=== PATIENT | male | born 1945 | race Two or more races ===

== ENCOUNTER 2024-08-31 17:31 | Inpatient (IN) | payer MEDICARE, OTHER ==
[~2024-08-31] VITALS: Ht 177.8 cm; Wt 85.7 kg
[~2024-08-31 17:31] MED LIST: RIVA15TA PO
[2024-08-31 18:54] LABS: BASOPHILS # (AUTO) 0.1 K/uL (0.0-0.2); BASOPHILS % (AUTO) 1.3 % (0.0-2.0); EOSINOPHILS # (AUTO) 0.1 K/uL (0.0-0.7); EOSINOPHILS % (AUTO) 1.9 % (0.0-6.0); HEMATOCRIT 40 % (39-51); HEMOGLOBIN 13.2 g/dL (13.5-17.5); LYMPHOCYTES # (AUTO) 1.1 K/uL (0.8-4.8); LYMPHOCYTES % (AUTO) 16.8 % (20.0-44.0); MEAN CORPUSCULAR HEMOGLOBIN 32 PG (26.0-33.0); MEAN CORPUSCULAR HGB CONC 33 g/dl (31.0-36.0); MEAN CORPUSCULAR VOLUME 96 fL (80-96); MONOCYTES # (AUTO) 0.7 K/uL (0.1-1.30); MONOCYTES % (AUTO) 10.3 % (2.0-12.0); NEUTROPHILS # (AUTO) 4.5 K/uL (1.8-8.9); NEUTROPHILS % (AUTO) 69.7 % (43.0-81.0); PLATELET COUNT (AUTO) 190 K/uL (150-450); RED BLOOD CELL COUNT(AUTO) 4.18 MIL/uL (4.5-6.0); RED CELL DISTRIBUTION WIDTH 16.1 % (11.5-15.0); WHITE BLOOD COUNT (AUTO) 6.4 K/uL (4.3-11.0)
[2024-08-31 18:58] LABS: APPEARANCE,URINE CLEAR (CLEAR); BILIRUBIN,URINE NEGATIVE (NEGATIVE); BLOOD, URINE 2+ Ery/uL (NEGATIVE); COLOR,URINE YELLOW (YELLOW); KETONES,URINE NEGATIVE (NEGATIVE); LEUKOCYTE ESTERASE ,URINE TRACE (NEGATIVE); NITRITE, URINE NEGATIVE (NEGATIVE); PH,URINE 5.5 (5.0-8.0); PROTEIN,URINE NEGATIVE (NEGATIVE); UGLUCOSE 3+ mg/dL (NEGATIVE); UROBILINOGEN,URINE 0.2 EU/dL (0.2)
[2024-08-31 19:01] LABS: ADD URINE CULTURE NO; BACTERIA,URINE Few /HPF (None Seen); SQUAMOUS EPITHELIAL CELL,UR Rare /HPF (None Seen)
[2024-08-31 19:05] LABS: CALCIUM, SERUM 9.1 mg/dL (8.5-10.1); CARBON DIOXIDE 24 mmol/L (21-32); CHLORIDE 107 mmol/L (98-107); GLUCOSE 179 mg/dL (74-106); SODIUM SERUM 141 mmol/L (136-145); UREA NITROGEN, BLOOD 18 mg/dL (7-18)
[2024-08-31 19:10] LABS: ACETAMINOPHEN < 10 ug/ml (10-30); ALANINE AMINOTRANSFERASE 20 U/L (12-78); ALBUMIN 3.5 g/dL (3.4-5.0); ALCOHOL, BLOOD < 3 mg/dL (0-10); ALKALINE PHOSPHATASE 110 U/L (46-116); ASPARTATE AMINOTRANSFERASE 10 U/L (15-37); BILIRUBIN,DIRECT 0.2 mg/dL (0.0-0.2); BILIRUBIN,TOTAL 0.5 mg/dL (0.2-1.0); SALICYLATE 0.6 mg/dL (2.8-20.0)
[2024-08-31 19:15] LABS: AMPHETAMINE, URINE NEGATIVE (NEGATIVE); BARBITURATE, URINE NEGATIVE (NEGATIVE); BENZODIAZEPINE, URINE NEGATIVE (NEGATIVE); CANNABINOID, URINE NEGATIVE (NEGATIVE); COCCAINE, URINE NEGATIVE (NEGATIVE); OPIATE, URINE NEGATIVE (NEGATIVE); PHENCYCLIDINE SCREEN,URINE NEGATIVE (NEGATIVE)
[2024-08-31] MEDS ORDERED: COLC0.6C3 PO (20:00)
[2024-08-31] MEDS ORDERED: CHOL200059 PO (20:00)
[2024-08-31] MEDS ORDERED: VITA1TAB37 PO (20:00)
[2024-08-31] MEDS ORDERED: [UNRECOGNIZED DRUG - OTHER] IH (20:00)
[2024-08-31] MEDS ORDERED: ASPI-1169 PO (20:00)
[2024-08-31] MEDS ORDERED: SACU1TAB7 PO (20:00)
[2024-08-31] MEDS ORDERED: BISA10SU11 RC (20:00)
[2024-08-31] MEDS ORDERED: OXYC5TAB3 PO (20:00)
[2024-08-31] MEDS ORDERED: INSU100V42 SQ (20:00)
[2024-08-31] MEDS ORDERED: INSU100V7 SQ (20:00)
[2024-08-31] MEDS ORDERED: POLY17PO4 PO (20:00)
[2024-08-31] MEDS ORDERED: MAGN400O6 PO (20:00)
[2024-08-31] MEDS ORDERED: MULT-213 PO (20:00)
[2024-08-31] MEDS ORDERED: SENN-301 PO (20:00)
[2024-08-31] MEDS ORDERED: NYST30CR2 TP (20:00)
[2024-08-31] MEDS ORDERED: NALO4SPR NS (20:00)
[2024-08-31] MEDS ORDERED: BISA-79 PO (20:00)
[2024-08-31] MEDS ORDERED: SPIR25TA PO (20:00)
[2024-08-31] MEDS ORDERED: MAGN400T52 PO (20:00)
[2024-08-31] MEDS ORDERED: UBID200C36 PO (20:00)
[2024-08-31] MEDS ORDERED: OMEP20CA15 PO (20:00)
[2024-08-31] MEDS ORDERED: ACET325T53 PO (20:00)
[2024-08-31] MEDS ORDERED: EMPA10TA PO (20:00)
[2024-08-31] MEDS ORDERED: MELA5TAB PO (20:00)
[2024-08-31] MEDS ORDERED: ATOR40TA PO (20:00)
[2024-08-31] MEDS ORDERED: CARV12.52 PO (20:00)
[2024-08-31] MEDS ORDERED: MINE133E RC (20:00)
[2024-08-31] MEDS ORDERED: ALBUTEROL IH PRN (23:30)
[2024-08-31] MEDS ORDERED: BISACODYL SUPP (10 MG) 10 MG/SUPP.RECT SUPP.RECT RC PRN (23:30)
[2024-08-31] MEDS ORDERED: BISACODYL (5 MG) 5 MG TABLET.DR PO PRN (23:30)
[2024-08-31] MEDS ORDERED: BUDESONIDE IH PRN (23:30)
[2024-08-31] MEDS ORDERED: MAGNESIUM HYDROXIDE 30 ML UDC PO PRN (23:30)
[2024-08-31] MEDS ORDERED: MINERAL OIL 133 ML (PYXIS) 1 EA ENEMA RC PRN (23:30)
[2024-08-31] MEDS ORDERED: DEXTROSE 50%-WATER 50 ML DISP.SYRIN IV PRN (23:30)
[2024-09-01] MEDS ORDERED: ACETAMINOPHEN 325 MG TABLET PO PRN
[2024-09-01] MEDS ORDERED: MAG HYDROX/AL HYDROX/SIMETH 30 ML UDC PO PRN
[2024-09-01] MEDS ORDERED: MAGNESIUM HYDROXIDE 30 ML UDC PO PRN
[2024-09-01] MEDS ORDERED: ZOLPIDEM TARTRATE 5 MG TABLET PO PRN
[2024-09-01] MEDS: BLOOD SUGAR DIAGNOSTIC 1 EACH STRIP IN ONE (00:36)
[2024-09-01] MEDS: OLANZAPINE 10 MG VIAL IM ONE (00:46)
[2024-09-01] MEDS ORDERED: oxyCODONE IR immediate release 5 MG TABLET PO PRN (01:00)
[2024-09-01 03:54] VITALS: BP 145/98; TEMP 98.4; O2SAT 98
[2024-09-01] MEDS: BLOOD SUGAR DIAGNOSTIC 1 EACH STRIP IN SCH (07:30)
[2024-09-01 08:00] VITALS: BP 138/76; TEMP 97.7; O2SAT 96
[2024-09-01 08:03] LABS: ALANINE AMINOTRANSFERASE 20 U/L (12-78); ALBUMIN 3.8 g/dL (3.4-5.0); ALKALINE PHOSPHATASE 118 U/L (46-116); ASPARTATE AMINOTRANSFERASE 12 U/L (15-37); BILIRUBIN,TOTAL 0.8 mg/dL (0.2-1.0); CARBON DIOXIDE 27 mmol/L (21-32); CHLORIDE 107 mmol/L (98-107); CREATININE 0.9 mg/dL (0.6-1.3); GLUCOSE 165 mg/dL (74-106); POTASSIUM 3.8 mmol/L (3.5-5.1); SODIUM SERUM 141 mmol/L (136-145); TOTAL PROTEIN, SERUM 7.5 g/dL (6.4-8.2); UREA NITROGEN, BLOOD 16 mg/dL (7-18)
[2024-09-01 08:05] LABS: CHOLESTEROL 99 mg/dL (<200); HDL CHOLESTEROL 42 mg/dL (40-60); LDL 44 mg/dL (0-99); TRIGLYCERIDES 101 mg/dL (30-150)
[2024-09-01] MEDS: CEPHALEXIN MONOHYDRATE 500 MG CAPSULE PO SCH (08:29)
[2024-09-01] MEDS: MULTIVITAMINS,THERAGRAN 1 UDTAB TABLET PO SCH (08:30)
[2024-09-01] MEDS: CHOLECALCIFEROL 1,000 UNIT TABLET (VIT D3) PO SCH (08:30)
[2024-09-01] MEDS: PANTOPRAZOLE 40 MG TABLET.DR PO SCH (08:30)
[2024-09-01] MEDS: CARVEDILOL 12.5 MG TABLET PO SCH (08:30)
[2024-09-01] MEDS: MAGNESIUM OXIDE 400 MG TABLET PO SCH (08:30)
[2024-09-01] MEDS: VITAMIN B COMP W-C 1 TAB TABLET PO SCH (08:30)
[2024-09-01] MEDS: ASPIRIN 81 MG TAB.CHEW PO SCH (08:30)
[2024-09-01] MEDS: SPIRONOLACTONE 25 MG TABLET PO SCH (08:31)
[2024-09-01] MEDS: COLCHICINE 0.6 MG TABLET PO SCH (08:31)
[2024-09-01] MEDS: SACUBITRIL/VALSARTAN 49/51MG TABLET PO SCH (08:32)
[2024-09-01] MEDS: EMPAGLIFLOZIN 10 MG TABLET PO SCH (08:33)
[2024-09-01] MEDS: RIVAROXABAN 15 MG TABLET PO SCH (08:34)
[2024-09-01] MEDS: INSULIN GLARGINE, 100 UNIT/ML CARTRIDGE SQ SCH (09:00)
[2024-09-01] MEDS: NYSTATIN CREAM 15 GM TUBE TP SCH (09:00)
[2024-09-01] MEDS ORDERED: UBIDECARENONE 400 MG PO SCH (09:00)
[2024-09-01] MEDS ORDERED: ALBUTEROL FS 2.5 MG/3 ML VIAL.NEB NEB PRN (14:30)
[2024-09-01] MEDS ORDERED: BUDESONIDE RESPULE INH 0.5 MG/2 ML AMPUL.NEB NEB PRN (14:30)
[2024-09-01] MEDS: DOCUSATE SODIUM 100 MG CAPSULE PO SCH (15:04)
[2024-09-01 16:00] VITALS: BP 117/76; TEMP 98; O2SAT 95
[2024-09-01] MEDS: POLYETHYLENE GLYCOL 3350 17 GM POWD.PACK PO SCH (17:27)
[2024-09-01] MEDS ORDERED: SENNOSIDES/DOCUSATE SODIUM 1 UDTAB TABLET PO SCH (18:00)
[2024-09-01 20:00] VITALS: BP 108/55; TEMP 97.7; O2SAT 98
[2024-09-01] MEDS: QUETIAPINE FUMARATE 25 MG TABLET PO SCH (21:17)
[2024-09-01] MEDS: ATORVASTATIN 40 MG TABLET PO SCH (21:19)
[2024-09-01] MEDS: SENNOSIDES 8.6 MG TABLET PO SCH (21:19)
[2024-09-02 08:00] VITALS: BP 120/67; TEMP 98; O2SAT 97
[2024-09-02 16:11] VITALS: BP 160/77; TEMP 98.9; O2SAT 96
[2024-09-02] MEDS: OXCARBAZEPINE 150 MG TABLET PO SCH (16:11)
[2024-09-02 20:17] VITALS: BP 135/73; TEMP 98.8; O2SAT 97
[2024-09-02] MEDS: INSULIN REGULAR, HUMAN 100 UNIT/ML 3 ML VIAL SQ PRN (22:46)
[2024-09-03 08:00] VITALS: BP 129/69; TEMP 98; O2SAT 97
[2024-09-03] MEDS: OLANZAPINE 10 MG VIAL IM ONE (08:04)
[2024-09-03] MEDS: OXCARBAZEPINE 150 MG TABLET PO SCH (15:59)
[2024-09-03 16:00] VITALS: BP 126/60; TEMP 97.9; O2SAT 98
[2024-09-03 20:25] VITALS: BP 153/66; TEMP 97.8; O2SAT 97
[2024-09-04 08:00] VITALS: BP 154/85; TEMP 97.9; O2SAT 97
[2024-09-05 08:00] VITALS: BP 132/85; TEMP 98.2; O2SAT 100
[2024-09-05] MEDS: QUETIAPINE FUMARATE 25 MG TABLET PO PRN (14:37)
[2024-09-05] MEDS: OLANZAPINE 10 MG VIAL IM STA (15:28)
[2024-09-05] MEDS: OLANZAPINE 10 MG VIAL IM ONE (15:29)
[2024-09-05 21:03] VITALS: BP 109/54; TEMP 98.4; O2SAT 97
[2024-09-05] MEDS: QUETIAPINE FUMARATE 25 MG TABLET PO SCH (21:18)
[2024-09-05] MEDS: ZOLPIDEM TARTRATE 5 MG TABLET PO PRN (21:27)
[2024-09-06 08:31] VITALS: BP 120/65; TEMP 98.2; O2SAT 95
[2024-09-06 16:00] VITALS: BP 122/68; TEMP 97.9; O2SAT 99
[2024-09-06] MEDS: OXCARBAZEPINE 150 MG TABLET PO SCH (16:26)
[2024-09-06 20:00] VITALS: BP 94/63; TEMP 98.8; O2SAT 99
[2024-09-07 08:00] VITALS: BP 123/69; TEMP 98.7; O2SAT 99
[2024-09-07 15:41] VITALS: BP 100/57; TEMP 98.7; O2SAT 100
[2024-09-07 20:00] VITALS: BP 88/62; TEMP 98.7; O2SAT 98
[2024-09-08 08:00] VITALS: BP 136/90; TEMP 97.6; O2SAT 96
[2024-09-08] MEDS: QUETIAPINE FUMARATE 25 MG TABLET PO SCH ×2 (13:51→21:05)
[2024-09-08 16:00] VITALS: BP 133/97; TEMP 97.9; O2SAT 98
[2024-09-08 20:00] VITALS: BP 104/45; TEMP 98.3; O2SAT 96
[2024-09-09 08:00] VITALS: BP 127/66; TEMP 97.9; O2SAT 99
[2024-09-09] MEDS: NEOMY SULF/BACITRAC ZN/POLY 15 GM TUBE TP SCH (12:49)
[2024-09-09 16:02] VITALS: BP 146/68; TEMP 97.8; O2SAT 94
[2024-09-09 20:00] VITALS: BP 95/57; TEMP 97.9; O2SAT 98
[2024-09-10 08:00] VITALS: BP_SYST 100; BP_SYST 117; BP_DIAS 58; BP_DIAS 79; TEMP 97.6; TEMP 97.8; O2SAT 100; O2SAT 99
[2024-09-10 20:28] VITALS: BP 102/58; TEMP 97.8; O2SAT 97
[2024-09-11 08:13] VITALS: BP 130/62; TEMP 98.2; O2SAT 100
[2024-09-11 15:58] VITALS: BP 100/59; TEMP 98.6; O2SAT 96
[2024-09-11 20:12] VITALS: BP 120/62; TEMP 98.3; O2SAT 96
[2024-09-12 08:19] VITALS: BP 139/69; TEMP 98.1; O2SAT 96
[2024-09-12 16:00] VITALS: BP 100/54; TEMP 97.9; O2SAT 99
[2024-09-12] MEDS: BENZTROPINE MESYLATE (1 MG) 1 MG TABLET PO SCH (19:28)
[2024-09-12 20:00] VITALS: BP 97/45; TEMP 98.1; O2SAT 97
[2024-09-12 22:20] VITALS: BP 102/56; TEMP 98; O2SAT 97
[2024-09-13 08:00] VITALS: BP 131/67; TEMP 98.7; O2SAT 95
[2024-09-13 16:00] VITALS: BP 135/91; TEMP 98.6; O2SAT 98
[2024-09-13 20:00] VITALS: BP 90/53; TEMP 97.8; O2SAT 98
[2024-09-13 21:00] VITALS: BP 100/61; TEMP 98.2; O2SAT 98
[2024-09-14] MEDS ORDERED: PHENAZOPYRIDINE HCL 200 MG TABLET PO SCH (06:00)
[2024-09-14 08:00] VITALS: BP 125/60; TEMP 98.1; O2SAT 97
[2024-09-14] MEDS: PHENAZOPYRIDINE HCL 200 MG TABLET PO SCH (09:43)
[2024-09-14 13:20] LABS: APPEARANCE,URINE SLIGHTLY CLOUDY (CLEAR); BILIRUBIN,URINE NEGATIVE (NEGATIVE); BLOOD, URINE 3+ Ery/uL (NEGATIVE); COLOR,URINE YELLOW (YELLOW); KETONES,URINE NEGATIVE (NEGATIVE); LEUKOCYTE ESTERASE ,URINE NEGATIVE (NEGATIVE); NITRITE, URINE NEGATIVE (NEGATIVE); PROTEIN,URINE TRACE mg/dl (NEGATIVE); UGLUCOSE 3+ mg/dL (NEGATIVE); UROBILINOGEN,URINE 0.2 EU/dL (0.2)
[2024-09-14 13:28] LABS: RBC,URINE 81-100 /HPF (0-2); WBC,URINE 51-80 /HPF (0-3)
[2024-09-14 13:29] LABS: ADD URINE CULTURE YES; BACTERIA,URINE Rare /HPF (None Seen); SQUAMOUS EPITHELIAL CELL,UR None Seen /HPF (None Seen)
[2024-09-14 16:00] LABS: BASOPHILS % (AUTO) 0.6 % (0.0-2.0); EOSINOPHILS # (AUTO) 0.2 K/uL (0.0-0.7); EOSINOPHILS % (AUTO) 4.2 % (0.0-6.0); HEMATOCRIT 39 % (39-51); HEMOGLOBIN 12.8 g/dL (13.5-17.5); LYMPHOCYTES % (AUTO) 21.4 % (20.0-44.0); MEAN CORPUSCULAR HEMOGLOBIN 32 PG (26.0-33.0); MEAN CORPUSCULAR HGB CONC 33 g/dl (31.0-36.0); MEAN CORPUSCULAR VOLUME 96 fL (80-96); MONOCYTES # (AUTO) 0.6 K/uL (0.1-1.30); MONOCYTES % (AUTO) 12.8 % (2.0-12.0); NEUTROPHILS # (AUTO) 2.8 K/uL (1.8-8.9); PLATELET COUNT (AUTO) 138 K/uL (150-450); RED BLOOD CELL COUNT(AUTO) 4.05 MIL/uL (4.5-6.0); RED CELL DISTRIBUTION WIDTH 14.6 % (11.5-15.0); WHITE BLOOD COUNT (AUTO) 4.6 K/uL (4.3-11.0)
[2024-09-14 16:12] LABS: ALANINE AMINOTRANSFERASE 23 U/L (12-78); ALBUMIN 3.4 g/dL (3.4-5.0); ALKALINE PHOSPHATASE 116 U/L (46-116); ASPARTATE AMINOTRANSFERASE 13 U/L (15-37); BILIRUBIN,TOTAL 0.3 mg/dL (0.2-1.0); CALCIUM, SERUM 9.1 mg/dL (8.5-10.1); CARBON DIOXIDE 33 mmol/L (21-32); CHLORIDE 104 mmol/L (98-107); GLUCOSE 250 mg/dL (74-106); POTASSIUM 4.5 mmol/L (3.5-5.1); SODIUM SERUM 142 mmol/L (136-145); TOTAL PROTEIN, SERUM 6.8 g/dL (6.4-8.2); UREA NITROGEN, BLOOD 28 mg/dL (7-18)
[2024-09-14 16:17] VITALS: BP 115/62; TEMP 97.7; O2SAT 96
[2024-09-14] MEDS: SULFAMETH/TRIMETH 800/160 MG 1 UDTAB TABLET PO SCH (21:31)
[2024-09-15 08:00] VITALS: BP 120/61; TEMP 97.5; O2SAT 95
[2024-09-15 08:18] VITALS: BP 120/61
== END 2024-09-15 11:20 | DRG 885 ==
LOC: ER 17:40 → GPS 23:04
PROVIDERS: ADMIT Psychiatry & Neurology Psychiatry
DX: F39 Unspecified mood [affective] disorder (principal); F01.53 Vascular dementia, unspecified severity, with mood disturbance; N18.9 Chronic kidney disease, unspecified; N39.0 Urinary tract infection, site not specified; F01.518 Vascular dementia, unspecified severity, with other behavioral disturbance; I13.0 Hypertensive heart and chronic kidney disease with heart failure and stage 1 through stage 4 chronic kidney disease, or unspecified chronic kidney disease; F29 Unspecified psychosis not due to a substance or known physiological condition; F19.21 Other psychoactive substance dependence, in remission; Z73.6 Limitation of activities due to disability; B96.89 Other specified bacterial agents as the cause of diseases classified elsewhere; I50.9 Heart failure, unspecified; E11.22 Type 2 diabetes mellitus with diabetic chronic kidney disease; I48.91 Unspecified atrial fibrillation; J44.9 Chronic obstructive pulmonary disease, unspecified; K21.9 Gastro-esophageal reflux disease without esophagitis; Z79.01 Long term (current) use of anticoagulants; Z79.4 Long term (current) use of insulin; Z79.84 Long term (current) use of oral hypoglycemic drugs; Z87.891 Personal history of nicotine dependence
CPT/HCPCS: 36415; 80048-TC; 80053-TC; 80061-TC; 80076-TC; 81001; 82962-TC; 85025-TC; 87086-TC; 97112-TC; 97116-TC; 97530-TC; G0480; J1815; J3490